=== PATIENT | female | born 1975 | race Caucasian/White ===

== ENCOUNTER → 2020-03-07 | Outpatient (CLI) | payer BC ==
--- NOTE | 2020-03-07 12:00 | REP ---
INDICATION: LOW BACK PAIN COMPARISON: None. TECHNIQUE: AP, lateral, bilateral oblique, and coned-down views of the lumbar spine. FINDINGS: Alignment and lordosis maintained. Vertebral bodies are intact. Disc spaces are relatively normal/age-appropriate. Very minimal endplate sclerosis with subtle marginal spurring and minimal disc space narrowing noted. No acute fracture/compression injury or subluxation. No obvious spondylolysis or spondylolisthesis.. IMPRESSION: Age-related changes. <Electronically signed by Tank Sarabia > 03/07/20 2037
== END ==
LOC: M ADAMS 11:38
PROVIDERS: ATTEND Physician Assistant
DX: M54.5 Low back pain (principal)